=== PATIENT | female | born 2000 | race Hispanic/Latino ===

== ENCOUNTER 2024-04-11 23:25 | Emergency (ER) | payer SELFPAY ==
[~2024-04-11] VITALS: Ht 167.6 cm; Wt 72.6 kg
[2024-04-12 00:07] LABS: APPEARANCE,URINE CLEAR (CLEAR); BILIRUBIN,URINE NEGATIVE (NEGATIVE); COLOR,URINE YELLOW (YELLOW); GLUCOSE, URINE (UA) NEGATIVE (NEGATIVE); KETONES,URINE NEGATIVE (NEGATIVE); LEUKOCYTE ESTERASE ,URINE 75 Leu/uL (NEGATIVE); NITRATE,URINE NEGATIVE (NEGATIVE); OCCULT BLOOD,URINE NEGATIVE (NEGATIVE); PH,URINE 5.5 (5.0-8.0); PROTEIN,URINE NEGATIVE (NEGATIVE); UROBILINOGEN,URINE 0.2 mg/dL (0.2-1.0)
[2024-04-12 00:08] LABS: HCG,QUALITATIVE URINE POSITIVE (NEGATIVE)
[2024-04-12 00:09] LABS: ADD UA MICROSCOPIC YES
[2024-04-12 00:11] LABS: MUCUS,URINE RARE LPF (None Seen); SQUAMOUS EPITHELIAL CELL,UR FEW /HPF (0-2)
[2024-04-12] MEDS: HYDROcodone/APAP 5/325 1 TAB TABLET PO ONE (00:52)
[2024-04-12 00:53] LABS: BASOPHILS # (AUTO) 0.05 K/uL (0.00-0.20); BASOPHILS % (AUTO) 0.5 % (0.0-5.0); EOSINOPHILS # (AUTO) 0.19 K/uL (0.00-0.70); IMMATURE GRANULOCYTE ABSOLUTE 0.03 K/uL (0-1); LYMPHOCYTES # (AUTO) 2.3 K/uL (1.0-4.8); LYMPHOCYTES % (AUTO) 24.4 % (21.0-51.0); MEAN CORPUSCULAR HEMOGLOBIN 31.6 pg (27.0-33.0); MEAN CORPUSCULAR VOLUME 90.3 fL (79-99); MONOCYTES # (AUTO) 0.7 K/uL (0.1-1.0); MONOCYTES % (AUTO) 7.1 % (3.0-13.0); NEUTROPHILS # (AUTO) 6.3 K/uL (1.8-7.7); NEUTROPHILS % (AUTO) 65.7 % (40.0-77.0); PLATELET COUNT (AUTO) 318 K/uL (130-400); RED BLOOD CELL COUNT(AUTO) 4.21 MIL/uL (4.00-5.50); RED CELL DISTRIBUTION WIDTH 12.3 % (11.0-15.5); WHITE BLOOD COUNT (AUTO) 9.6 K/uL (4.8-10.8)
[2024-04-12 01:04] LABS: CREATININE 0.7 mg/dL (0.5-1.0); POTASSIUM 3.5 mmol/L (3.5-5.1)
[2024-04-12 01:15] LABS: ALBUMIN 3.3 g/dL (3.5-5.0); BILIRUBIN,TOTAL 0.3 mg/dL (0.2-1.0); TOTAL PROTEIN, SERUM 6.7 g/dL (6.0-8.3)
[2024-04-12 02:56] VITALS: BP 128/76; PULSE 70; RESP 20; TEMP 98.9; O2SAT 100
[2024-04-12] MEDS ORDERED: MACR100 PO (03:44)
--- NOTE | 2024-04-12 03:45 | ERN ---
ED Note History of Present Illness Stated Complaint: LOWER ABD CRAMPING Chief Complaint: Abdominal Pain Time Seen by MD: 23:39 Allergies: Coded Allergies: No Known Drug Allergies (Unverified Allergy, Unknown, 04/11/24) Past Medical History Dictation 24-year-old female with no significant past medical history presents with left lower quadrant. Patient denies fevers, nausea, vomiting diaphoresis, syncope, presyncope, productive cough. Patient reports last period was approximately one month ago Past Medical History: No Pertinent History Surgical History: None LMP: Mar 05, 2024 Review of System Dictation See HPI Initial Vital Sign VS Vital Signs Date Time Temp Pulse Resp B/P (MAP) Pulse Ox O2 Delivery O2 Flow Rate FiO2 04/11/24 23:27 97.9 100 18 128/72 100 Room Air 0 04/12/24 00:47 21 Physical Exam Dictation Uncomfortable appearing, suprapubic tenderness to palpation, regular heart rate rhythm, abdomen is soft, nontender non peritoneal Results (Laboratory/Radiology) Laboratory/Radiology Laboratory Tests Test 04/11/24 23:43 04/12/24 00:46 Urine Color YELLOW (YELLOW) Urine Appearance CLEAR (CLEAR) Urine pH 5.5 (5.0-8.0) Urine Specific [place] 1.028 (1.001-1.031) Urine Protein NEGATIVE mg/dL (NEGATIVE) Urine Glucose (UA) NEGATIVE mg/dL (NEGATIVE) Urine Ketones NEGATIVE mg/dL (NEGATIVE) Urine Occult Blood NEGATIVE (NEGATIVE) Urine Nitrate NEGATIVE (NEGATIVE) Urine Bilirubin NEGATIVE mg/dL (NEGATIVE) Urine Urobilinogen 0.2 mg/dL (0.2-1.0) Urine Leukocyte Esterase 75 Bipin/uL (NEGATIVE) H Urine RBC 2-5 /HPF (0-1) H Urine WBC 2-5 /HPF (0-1) H Urine Squamous Epithelial Cells FEW /HPF (0-2) Urine Bacteria None /HPF (None Seen) Urine HCG, Qualitative POSITIVE (NEGATIVE) H White Blood Count 9.6 K/uL (4.8-10.8) Red Blood Count 4.21 MIL/uL (4.00-5.50) Hemoglobin 13.3 g/dL (12.0-16.0) Hematocrit 38.0 % (36-48) Mean Corpuscular Volume 90.3 fL (79-99) Mean Corpuscular Hemoglobin 31.6 pg (27.0-33.0) Mean Corpuscular Hemoglobin Concent 35.0 g/dL (32.0-36.0) Red Cell Distribution Width 12.3 % (11.0-15.5) Platelet Count 318 K/uL (130-400) Mean Platelet Volume 9.3 fL (7.5-10.5) Immature Granulocyte % (Auto) 0.3 % (0-1) Neutrophils (%) (Auto) 65.7 % (40.0-77.0) Lymphocytes (%) (Auto) 24.4 % (21.0-51.0) Monocytes (%) (Auto) 7.1 % (3.0-13.0) Eosinophils (%) (Auto) 2.0 % (0.0-8.0) Basophils (%) (Auto) 0.5 % (0.0-5.0) Neutrophils # (Auto) 6.3 K/uL (1.8-7.7) Lymphocytes # (Auto) 2.3 K/uL (1.0-4.8) Monocytes # (Auto) 0.7 K/uL (0.1-1.0) Eosinophils # (Auto) 0.19 K/uL (0.00-0.70) Basophils # (Auto) 0.05 K/uL (0.00-0.20) Absolute Immature Granulocyte (auto 0.03 K/uL (0-1) Nucleated Red Blood Cells 0.0 % (0.0-0.19) Sodium Level 141 mmol/L (136-145) Potassium Level 3.5 mmol/L (3.5-5.1) Chloride Level 105 mmol/L (101-111) Carbon Dioxide Level 26 mmol/L (21-32) Blood Urea Nitrogen 15 mg/dL (7-18) Creatinine 0.7 mg/dL (0.5-1.0) Glomerular Filtration Rate Calc 124 mL/min (>90) Random Glucose 112 mg/dL (70-105) H Total Calcium 8.5 mg/dL (8.5-10.1) Total Bilirubin 0.3 mg/dL (0.2-1.0) Aspartate Amino Transf (AST/SGOT) 18 U/L (10-37) Alanine Aminotransferase (ALT/SGPT) 27 U/L (12-78) Alkaline Phosphatase 45 U/L (50-136) L Total Protein 6.7 g/dL (6.0-8.3) Albumin 3.3 g/dL (3.5-5.0) L Lipase 43 U/L (16-77) Human Chorionic Gonadotropin, Quant 672 mIU/mL (0-5) H Serum Test, Qualitative POSITIVE (NEGATIVE) H ED Course ED Course Orders Procedure Category Date Status Time Urinalysis Profile LAB 04/11/24 Complete 23:32 ,Urine Test LAB 04/11/24 Complete 23:32 Comprehensive LAB 04/11/24 Complete Metabolic Panel 23:48 Lipase LAB 04/11/24 Complete 23:48 Hcg,Quantitative LAB 04/11/24 Complete 23:48 Hydrocodone/Apap PHA 04/12/24 Complete 5/325 ([place] 5/325mg) 00:00 Cbc With Differential LAB 04/11/24 Complete 23:48 Culture Urine KRYSTLE 04/12/24 In Process 00:09 Us Ob Transvaginal US 04/12/24 Taken 01:30 Testing, LAB 04/12/24 Complete Serum Hcg 01:30 Current Medications Medications (Trade) Dose Ordered Sig/Sandeep Route PRN Reason Start Time Stop Time Status Last Admin Dose Admin Acetaminophen/ Hydrocodone Bitart (NORco 5/325MG) 1 tab ONCE ONCE PO 04/12/24 00:00 04/12/24 00:01 DC 04/12/24 00:52 Vital Signs Date Time Temp Pulse Resp B/P (MAP) Pulse Ox O2 Delivery O2 Flow Rate FiO2 04/12/24 02:56 99.0 70 20 128/76 100 Room Air* 0 21 04/12/24 00:47 99.0 66 20 132/74 100 Room Air* 0 21 04/11/24 23:27 97.9 100 18 128/72 100 Room Air 0 Medical Decision Making MDM ddx: Diverticulosis versus acute pancreatitis versus pyelonephritis versus kidney stone versus UTI versus ectopic HCG qualitative positive for . Quantitative HCG performed. Ultrasound of pelvis shows intrauterine . We will counseled patient to follow up with linux server administrator. UA shows leukocytosis. In setting of ,This is consistent with UTI. Patient will be prescribed Macrobid. Upon re-evaluation, patient's symptoms improved. Discussed ED workup with patient. Recommend close primary care follow up as well as close OB follow up. Return precautions given. Invited and answered all questions prior to discharge. DX & DISP Disposition: Discharge Departure Impression: Primary Impression: Early stage of Additional Impression: UTI in Condition: Stable Scripts Nitrofurantoin/Nitrofuran Mac (Macrobid) 100 Mg Cap 1 CAP PO BID for 7 Days, #14 CAP 0 Refills Prov: ANSLEY VALDEZ DO 04/12/24 Additional Instructions: You must follow up with the linux server administrator at next available appointment. Ultrasound her shows yolk sac in the uterus; however, can still be outside of the uterus. You must follow up with linux server administrator for repeat ultrasound within the next 72 hours. Please return emergency department immediately if pain becomes worse or unbearable you develop lightheadedness, change in mental status, nausea, vomiting Referrals: SELF,REFERRAL (PCP) LELA MCNEIL MD Time of Disposition: 03:44 ANSLEY VALDEZ DO Apr 12, 2024 03:45
--- NOTE | 2024-04-12 08:36 | HMCIMG ---
Exam Type: US OB TRANSVAGINAL Clinical Information: pregant pain Comparison: None FINDINGS: There is an intrauterine gestational sac. Gestational sac diameter is 0.23 cm , corresponds to 4 weeks 6 days. No embryonic pole or yolk sac seen at this time. The uterus is anteverted with normal shape. It measures 7 x 4 x 5 cm in its maximum length, anteroposterior and transverse dimensions. The myometrium is homogeneous and there is no evidence of focal or diffuse lesions. Both ovaries appear normal with normal flow on color and Spectral Doppler. The right ovary measures 2 x 1 x 2 cm and the left ovary measures 2 x 2 x 2 cm. No adnexal masses. No free fluid or collections. Urinary bladder appears normal. IMPRESSION: Intrauterine gestational sac, with diameter corresponding to a gestational age of 4 weeks 6 days. No embryonic pole or yolk sac seen at this time. Consider short-term follow-up to confirm viability.
== END 2024-04-12 03:48 | disposition home or self-care (01) ==
LOC: EDH 23:25
DX: O23.41 Unspecified infection of urinary tract in pregnancy, first trimester (principal); N39.0 Urinary tract infection, site not specified; O26.891 Other specified pregnancy related conditions, first trimester; R10.2 Pelvic and perineal pain; Z3A.01 Less than 8 weeks gestation of pregnancy
CPT/HCPCS: 36415; 76817; 80053; 81001; 81025; 83690; 84702; 84703; 85025; 87086; 99284

== ENCOUNTER 2024-05-08 21:29 | Emergency (ER) | payer MEDICAID ==
[~2024-05-08] VITALS: Ht 167.6 cm; Wt 77.6 kg
[~2024-05-08 21:29] MED LIST: MACR100 PO
[2024-05-08 22:17] LABS: BASOPHILS # (AUTO) 0.02 K/uL (0.00-0.20); BASOPHILS % (AUTO) 0.2 % (0.0-5.0); HEMATOCRIT 41.8 % (36-48); IMMATURE GRANULOCYTE ABSOLUTE 0.03 K/uL (0-1); LYMPHOCYTES # (AUTO) 0.4 K/uL (1.0-4.8); LYMPHOCYTES % (AUTO) 3.1 % (21.0-51.0); MEAN CORPUSCULAR HEMOGLOBIN 31.3 pg (27.0-33.0); MEAN CORPUSCULAR HGB CONC 34.7 g/dL (32.0-36.0); MEAN CORPUSCULAR VOLUME 90.3 fL (79-99); MONOCYTES # (AUTO) 0.4 K/uL (0.1-1.0); MONOCYTES % (AUTO) 2.9 % (3.0-13.0); NEUTROPHILS # (AUTO) 12.2 K/uL (1.8-7.7); NEUTROPHILS % (AUTO) 93.6 % (40.0-77.0); PLATELET COUNT (AUTO) 319 K/uL (130-400); RED BLOOD CELL COUNT(AUTO) 4.63 MIL/uL (4.00-5.50); RED CELL DISTRIBUTION WIDTH 11.9 % (11.0-15.5)
[2024-05-08 22:30] LABS: CREATININE 0.6 mg/dL (0.5-1.0); POTASSIUM 3.4 mmol/L (3.5-5.1)
[2024-05-08 22:42] LABS: APPEARANCE,URINE CLEAR (CLEAR); BILIRUBIN,URINE NEGATIVE (NEGATIVE); COLOR,URINE YELLOW (YELLOW); GLUCOSE, URINE (UA) NEGATIVE (NEGATIVE); KETONES,URINE >=80 mg/dL (NEGATIVE); LEUKOCYTE ESTERASE ,URINE NEGATIVE Leu/uL (NEGATIVE); NITRATE,URINE NEGATIVE (NEGATIVE); OCCULT BLOOD,URINE NEGATIVE (NEGATIVE); PROTEIN,URINE 20 mg/dL (NEGATIVE); UROBILINOGEN,URINE 0.2 mg/dL (0.2-1.0)
[2024-05-08 22:49] LABS: ADD UA MICROSCOPIC YES
[2024-05-08 22:52] LABS: BACTERIA,URINE RARE /HPF (None Seen); MUCUS,URINE FEW LPF (None Seen); SQUAMOUS EPITHELIAL CELL,UR FEW /HPF (0-2)
[2024-05-08 22:55] LABS: ALBUMIN 3.5 g/dL (3.5-5.0); BILIRUBIN,DIRECT 0.2 mg/dL (0.0-0.3); BILIRUBIN,TOTAL 0.9 mg/dL (0.2-1.0); TOTAL PROTEIN, SERUM 7.5 g/dL (6.0-8.3)
[2024-05-08] MEDS: ondanSETRON 4MG INJ IVP ONE (23:12)
[2024-05-08] MEDS: 0.9%NACL 1000ML 1,000 ML IV ONE (23:12)
--- NOTE | 2024-05-09 00:07 | ERN ---
General Chief Complaint: OB<20 weeks gest. Stated Complaint: 7 WEEKS OB, N/V/D, DIZZY Time Seen by MD: 21:31 Time Seen by Midlevel: 21:31 Source: patient History of Present Illness Initial Comments Patient is a 24-year-old female with no significant past medical history presenting to the emergency department with nausea, vomiting, and diarrhea that started earlier today. She reports being approximately 8-9 weeks . She has an appointment coming up with her OBGYN. She denies any fever, chills, or any other symptoms at this time. Allergies: Coded Allergies: No Known Drug Allergies (Unverified Allergy, Unknown, 04/11/24) Home Meds Active Scripts Ondansetron (Ondansetron Odt) 4 Mg Tab.rapdis, 4 MG PO BID for 7 Days, #14 TAB Prov:JAIRO TERRY 05/09/24 Nitrofurantoin/Nitrofuran Mac (Macrobid) 100 Mg Cap, 1 CAP PO BID for 7 Days, #14 CAP 0 Refills Prov:ANSLEY VALDEZ DO 04/12/24 Past Medical History Past Medical History: No Pertinent History Past Surgical History: None Female( History) LMP: Mar 05, 2024 : 1 Para: 0 Aborts: 0 ROS Dictation CONSTITUTIONAL: Negative except for HPI HEAD/FACE: Negative except for HPI EENT: Negative except for HPI RESPIRATORY: Negative except for HPI GASTROINTESTINAL/ABDOMINAL: Negative except for HPI GENITOURINARY: Negative except for HPI MUSCULOSKELETAL: Negative except for HPI INTEGUMENTARY: Negative except for HPI NEUROLOGICAL/PSYCH: Negative except for HPI HEMATOLOGIC/LYMPHATIC: Negative except for HPI All Systems Negative, Except as noted above. 13 point review of systems assessed and all negative except for above. Physical Exam Physical Exam Dictation Vital Signs reviewed General Appearance: Alert, oriented x 3, no acute distress, well developed, nourished. Head and Face: non-traumatic. Eyes: PERRL, pink conjunctivas, eyelid no trauma, anterior chamber with arcus senilis. Ears: Pinnas intact and no signs of trauma or erythema ear canals clear and no discharge TM no erythema Nose: No discharge, no bleeding. Oropharynx: Mouth normal, tongue pink, pharynx clear,no erythema, tonsils no exudates, no abscesses noted, mucous membrane moist Neck: Supple, non-tender, no thyromegaly, no masses, no JVD, no bruits Breast:Deferred Chest:No tenderness, no crepitus, no paradoxical movement, no retractions Lungs:Clear, well-ventilated, symmetric, no rales, no wheezing, no rhonchi, no stridor, good breath sounds bilaterally Heart: Regular rate, regular rhythm, no murmur, no gallops Vascular: no peripheral edema, Abdomen: Soft, positive bowel sounds, nondistended, no guarding, nontender, no rebound, no masses no hepatomegaly, no splenomegaly, no Barry's sign, no hernias. Rectal: Deferred Genital: Deferred Neurological: Normal speech, motor function intact, sensory function intact Musculoskeletal: Neck nontender, full range of motion, back nontender, full range of motion, Extremities: nontender, full range of motion Skin: Color pink, dry, no turgor, no rash, no lacerations, no abrasions, no contusions. Lymphatic: Deferred Results Laboratory and Microbiology Lab and Micro Result Laboratory Tests Test 05/08/24 22:09 05/08/24 22:27 White Blood Count 13.0 K/uL (4.8-10.8) H Red Blood Count 4.63 MIL/uL (4.00-5.50) Hemoglobin 14.5 g/dL (12.0-16.0) Hematocrit 41.8 % (36-48) Mean Corpuscular Volume 90.3 fL (79-99) Mean Corpuscular Hemoglobin 31.3 pg (27.0-33.0) Mean Corpuscular Hemoglobin Concent 34.7 g/dL (32.0-36.0) Red Cell Distribution Width 11.9 % (11.0-15.5) Platelet Count 319 K/uL (130-400) Mean Platelet Volume 9.5 fL (7.5-10.5) Immature Granulocyte % (Auto) 0.2 % (0-1) Neutrophils (%) (Auto) 93.6 % (40.0-77.0) H Lymphocytes (%) (Auto) 3.1 % (21.0-51.0) L Monocytes (%) (Auto) 2.9 % (3.0-13.0) L Eosinophils (%) (Auto) 0.0 % (0.0-8.0) Basophils (%) (Auto) 0.2 % (0.0-5.0) Neutrophils # (Auto) 12.2 K/uL (1.8-7.7) H Lymphocytes # (Auto) 0.4 K/uL (1.0-4.8) L Monocytes # (Auto) 0.4 K/uL (0.1-1.0) Eosinophils # (Auto) 0.00 K/uL (0.00-0.70) Basophils # (Auto) 0.02 K/uL (0.00-0.20) Absolute Immature Granulocyte (auto 0.03 K/uL (0-1) Nucleated Red Blood Cells 0.0 % (0.0-0.19) White Cell Morphology Comment See comments Sodium Level 136 mmol/L (136-145) Potassium Level 3.4 mmol/L (3.5-5.1) L Chloride Level 95 mmol/L (101-111) L Carbon Dioxide Level 27 mmol/L (21-32) Blood Urea Nitrogen 11 mg/dL (7-18) Creatinine 0.6 mg/dL (0.5-1.0) Glomerular Filtration Rate Calc 128 mL/min (>90) Random Glucose 93 mg/dL (70-105) Total Calcium 9.0 mg/dL (8.5-10.1) Total Bilirubin 0.9 mg/dL (0.2-1.0) Direct Bilirubin 0.2 mg/dL (0.0-0.3) Aspartate Amino Transf (AST/SGOT) 16 U/L (10-37) Alanine Aminotransferase (ALT/SGPT) 47 U/L (12-78) Alkaline Phosphatase 52 U/L (50-136) Total Protein 7.5 g/dL (6.0-8.3) Albumin 3.5 g/dL (3.5-5.0) Lipase 24 U/L (16-77) Human Chorionic Gonadotropin, Quant 60561 mIU/mL (0-5) H Urine Color YELLOW (YELLOW) Urine Appearance CLEAR (CLEAR) Urine pH 6.0 (5.0-8.0) Urine Specific [place] 1.033 (1.001-1.031) Urine Protein 20 mg/dL (NEGATIVE) H Urine Glucose (UA) NEGATIVE mg/dL (NEGATIVE) Urine Ketones >=80 mg/dL (NEGATIVE) Urine Occult Blood NEGATIVE (NEGATIVE) Urine Nitrate NEGATIVE (NEGATIVE) Urine Bilirubin NEGATIVE mg/dL (NEGATIVE) Urine Urobilinogen 0.2 mg/dL (0.2-1.0) Urine Leukocyte Esterase NEGATIVE Bipin/uL Urine RBC 2-5 /HPF (0-1) H Urine WBC 2-5 /HPF (0-1) H Urine Squamous Epithelial Cells FEW /HPF (0-2) Urine Bacteria RARE /HPF (None Seen) Labs Reviewed?: Yes MDM MDM: Patient is a 24-year-old female with no significant past medical history presenting to the emergency department with nausea, vomiting, and diarrhea that started earlier today. She reports being approximately 8-9 weeks . She has an appointment coming up with her OBGYN. She denies any fever, chills, or any other symptoms at this time. She states her symptoms started shortly after eating [employer]. She states her dog also ate the same food and developed diarrhea and vomiting. Patients specifically denies any bloody stool. On physical examination patient is in no acute distress. Abdominal examination is unremarkable. CBC shows leukocytosis with a left shift hemoglobin is stable at 14.5. Platelets are normal at 319. Chemistries reveal a normal sodium of 136. Potassium is slightly low at 3.4. Chloride is 95. The remainder of her chemistries [place] [id number]. Urinalysis does not show any evidence of infection. Pelvic ultrasound reveals a single intrauterine gestation with an estimated gestational age of eight weeks and two days. heart rate is 186 beats per minute. Symptoms are most likely related to something she ate. Patient was given IV fluids and Zofran in the emergency department and reports feeling significantly improved. We will discharge with a prescription for Zofran. Patient was advised to follow up with OBGYN as scheduled or return to the ER for any new or worsening symptoms. Return precautions discussed Differential diagnosis: 1st trimester , urinary tract infection, gastroenteritis There are no social concerns with this patient. Prescription drug management Prescriptions will include: Zofran Medical management and examination interpretation discussions were had by me with other qualified healthcare professionals as indicated for the patient's care. ED Course Orders Procedure Category Date Status Time Cbc With Differential LAB 05/08/24 Complete 21:40 Basic Metabolic Panel LAB 05/08/24 Complete 21:40 Hepatic Function Panel LAB 05/08/24 Complete 21:40 Lipase LAB 05/08/24 Complete 21:40 Hcg,Quantitative LAB 05/08/24 Complete 21:40 Urinalysis Profile LAB 05/08/24 Complete 21:40 Us Ob <14 Weeks US 05/08/24 Resulted 22:52 0.9%Nacl 1000ml (Ns PHA 05/08/24 Complete 1000ml) 23:30 Ondansetron 4mg Inj PHA 05/08/24 Complete (Zofran 4mg Inj) 23:30 Current Medications Medications (Trade) Dose Ordered Sig/Sandeep Route PRN Reason Start Time Stop Time Status Last Admin Dose Admin Ondansetron HCl (zoFRAN 4MG INJ) 4 mg ONCE ONCE IVP 05/08/24 23:30 05/08/24 23:31 DC 05/08/24 23:12 Sodium Chloride 1,000 ml @ 0 mls/hr ONCE ONCE IV 05/08/24 23:30 05/08/24 23:31 DC 05/08/24 23:12 Vital Signs Date Time Temp Pulse Resp B/P (MAP) Pulse Ox O2 Delivery O2 Flow Rate FiO2 05/09/24 00:11 99.0 92 16 116/75 98 Room Air* 0 05/08/24 21:42 99.0 90 16 116/76 98 Room Air* 0 05/08/24 21:33 99.0 92 20 118/76 99 [place] [address] IMAGING REPORT Signed PATIENT: JELLY NEGRON MR#: [id number] : 2000 SEX: F AGE: 24 LOCATION: [facility] ORDER 51 STATUS: REG ER REPORT#: [id number] SERVICE 51 REASON: abd pain during ORDERING PHYSICIAN: JAIRO TERRY PROCEDURE: OB <14 - US OB <14 WEEKS US OB <14 WEEKS HISTORY: Abdominal pain COMPARISON: None TECHNIQUE: Obstetrical ultrasound study was performed. FINDINGS: The uterus measures 9 x 6 x 7 centimeter. Right ovary measures 3 x 2 x 2 centimeter. Left ovary measures 3 x 2 x 3 centimeter. Flow is seen in both ovaries. There is single intrauterine gestation with estimated gestational age of 8 weeks and 2 days. heart rate is 186 beats per minute. No fluid is seen in the cul-de-sac. IMPRESSION: 1. There is single intrauterine gestation with estimated gestational age of 8 weeks and 2 days. heart rate is 186 beats per minute. DICTATED BY: SHER SOTO MD DATE: 05/09/2412 ELECTRONICALLY SIGNED BY: SHER SOTO MD DATE: 05/09/2416 DX & DISP Disposition: Discharge Departure Impression: Primary Impression: First trimester Condition: Stable Scripts Ondansetron (Ondansetron Odt) 4 Mg Tab.rapdis 4 MG PO BID for 7 Days, #14 TAB Prov: JAIRO TERRY 05/09/24 Additional Instructions: Your blood work today shows an elevated white blood cell count however the remainder of your blood work [place] [id number] Your urinalysis does not show any evidence of infection. Your pelvic ultrasound reveals an intrauterine measuring approximately eight weeks and four days. There is a heart rate of 186. Your symptoms are most likely related to something you ate. I have given you a prescription for nausea medications which should help improve your symptoms over the next couple of days. Please keep appointment with your OBGYN for outpatient evaluation. If you develop any new or worsening symptoms please report to the ER for further evaluation. Referrals: АННА TILLEY MD (PCP) I have reviewed the case, and I agree with, Diagnosis and Plan I performed the substantive portion of the visit. I have reviewed and personally made and approve the management plan that is documented in the note by myself or the ABBEY. I acknowledge for responsibility for the patient's management plan. JAIRO TERRY May 09, 2024 00:07
[2024-05-09 00:11] VITALS: BP 116/75; PULSE 92; RESP 16; TEMP 98.9; O2SAT 98
--- NOTE | 2024-05-09 00:17 | HMCIMG ---
US OB <14 WEEKS HISTORY: Abdominal pain COMPARISON: None TECHNIQUE: Obstetrical ultrasound study was performed. FINDINGS: The uterus measures 9 x 6 x 7 centimeter. Right ovary measures 3 x 2 x 2 centimeter. Left ovary measures 3 x 2 x 3 centimeter. Flow is seen in both ovaries. There is single intrauterine gestation with estimated gestational age of 8 weeks and 2 days. heart rate is 186 beats per minute. No fluid is seen in the cul-de-sac. IMPRESSION: 1. There is single intrauterine gestation with estimated gestational age of 8 weeks and 2 days. heart rate is 186 beats per minute.
[2024-05-09] MEDS ORDERED: ONDA-243 PO (00:19)
== END 2024-05-09 00:34 | disposition home or self-care (01) ==
LOC: EDH 21:29
DX: O21.9 Vomiting of pregnancy, unspecified (principal); O26.891 Other specified pregnancy related conditions, first trimester; R19.7 Diarrhea, unspecified; R10.2 Pelvic and perineal pain; Z3A.09 9 weeks gestation of pregnancy; Z79.899 Other long term (current) drug therapy
CPT/HCPCS: 99285; 96374; 76801; 80076; 80048; 84702; 83690; 85025; 81001; 36415; J7030; J2405